=== PATIENT | male | born 2000 | race Caucasian/White ===

== ENCOUNTER 2022-08-30 01:16 | Emergency (ER) | payer MEDICAID, OTHER ==
[~2022-08-30] VITALS: Ht 177.8 cm; Wt 90.0 kg
[2022-08-30] MEDS ORDERED: DEXTROSE (50%) 50ML SYRG IV ONE ×3 (01:45→02:45)
[2022-08-30] MEDS ORDERED: ACCU-CHEK COMFORT CURVE STRIP VI ONE ×2 (02:30→02:45)
[2022-08-30 02:54] LABS: Basophils # (auto) 0.1 10 ^3/uL (0-0.2); Basophils % (auto) 0.8 % (0.0-2.0); Eosinophils # (auto) 0.1 10 ^3/uL (0-0.8); Hemoglobin 14.7 g/dL (13.5-17.5); Lymphocytes # (auto) 1.6 10 ^3/uL (0.4-5.4); Lymphocytes % (auto) 18.1 % (10.0-50.0); Mean Corpuscular Hemoglobin 31.5 pg (28.0-32.0); Monocytes # (auto) 0.6 10 ^3/uL (0-1.3); Monocytes % (auto) 7.2 % (0.0-12.0); Neutrophils # (auto) 6.5 10 ^3/uL (1.6-8.6); Neutrophils % (auto) 72.9 % (37.0-80.0); Red Blood Cells 4.67 10^6/uL (4.5-5.90); Red Cell Distribution Width 13.3 % (11.8-14.3)
[2022-08-30 03:11] LABS: Albumin 3.9 g/dL (3.4-5.0); Calcium 8.5 mg/dL (8.5-10.1); Potassium 3.8 mmol/L (3.5-5.1)
[2022-08-30 03:14] LABS: Bilirubin, Total 0.5 mg/dL (0.2-1.0); Total Protein 6.6 g/dL (6.4-8.2)
[2022-08-30 05:20] VITALS: BP 142/88
== END 2022-08-30 06:22 | disposition home or self-care (01) ==
LOC: EDBD 01:16 → ER 01:21
DX: T50.901A Poisoning by unspecified drugs, medicaments and biological substances, accidental (unintentional), initial encounter (principal); E11.8 Type 2 diabetes mellitus with unspecified complications; Y92.89 Other specified places as the place of occurrence of the external cause
CPT/HCPCS: 36415; 80053; 85025; 96374; 99283; J7042